=== PATIENT | female | born 1975 | race Asian ===

== ENCOUNTER 2021-04-15 13:56 | Outpatient (CLI) | payer OTHER | END 2021-04-15 19:00 | LOC: LAB 13:56 | PROVIDERS: ATTEND Nurse Practitioner Family | DX: U07.1 COVID-19 (principal); J18.9 Pneumonia, unspecified organism; R06.02 Shortness of breath; R53.83 Other fatigue; Z11.52 Encounter for screening for COVID-19 | CPT/HCPCS: 87635; G2023; U0003 ==

== ENCOUNTER 2021-05-05 13:37 | Outpatient (CLI) | payer OTHER | END 2021-05-05 22:36 | disposition home or self-care (01) | LOC: LAB 13:37 | PROVIDERS: ATTEND Nurse Practitioner Family | DX: Z11.52 Encounter for screening for COVID-19 (principal) | CPT/HCPCS: 87635; G2023; U0003 ==